=== PATIENT | male | born 1990 | race African-American/Black ===

== ENCOUNTER 2016-11-09 01:02 | Emergency (ER) | payer OTHER ==
[2016-11-09] MEDS ORDERED: NS 1,000 ML IV ONE (01:21)
--- NOTE | 2016-11-09 01:25 | EDPHY ---
H & P Stated Complaint: r upper abd pain 3 hr Time Seen by Provider: 11/09/16 01:15 HPI/ROS: Chief Complaint: Abdominal pain HPI: 26-year-old male had onset of right upper quadrant abdominal pain 3 hours ago. Is described as a tightness, 8/10. There are no aggravating or relieving factors. There is some radiating to his upper back. Does not hurt to move around. No urinary urgency, frequency or hematuria. No history of the same. Some nausea no vomiting. No fevers or chills. No recent illness. Does not have a history of prior abdominal surgeries in the past. ROS: 10 point Review of Systems is negative except as noted in the HPI. PMH: None Medications: None Allergies: No known drug allergies Social History: No smoking, occasional alcohol, no recreational drug use Family History: non-contributory Physical Exam: Gen: Awake, Alert, No Distress HEENT: Nose: no rhinorrhea Eyes: PERRLA, EOMI Mouth: Moist mucosa Neck: Supple, no JVD Chest: nontender, lungs clear to auscultation Heart: S1, S2 normal, no murmur Abd: Soft, right upper quadrant tenderness to palpation with a positive Chavez sign, no guarding Back: no CVA tenderness, no midline tenderness Ext: no edema, non-tender Skin: no rash Neuro: CN II-XII intact, Sensation grossly intact, Strength 5/5 in bilateral upper and lower extremities - Personal History Current Tetanus/Diphtheria Vaccine: Yes Current Tetanus Diphtheria and Acellular Pertussis (TDAP): Yes - Medical/Surgical History Hx Asthma: No Hx Chronic Respiratory Disease: No Hx Diabetes: No Hx Cardiac Disease: No Hx Renal Disease: No Hx Cirrhosis: No Hx Alcoholism: No Hx HIV/AIDS: No Hx Splenectomy or Spleen Trauma: No - Social History Smoking Status: Never smoked Constitutional: Initial Vital Signs Temperature (C) 36.4 C 11/09/16 01:05 Heart Rate 58 L 11/09/16 01:05 Respiratory Rate 18 11/09/16 01:05 Blood Pressure 134/91 H 11/09/16 01:05 O2 Sat (%) 99 11/09/16 01:05 O2 Delivery Mode Room Air Allergies/Adverse Reactions: No Known Allergies Allergy (Unverified 11/09/16 01:05) Home Medications: Medication Instructions Recorded NK [No Known Home Meds] 11/09/16 Medical Decision Making - Diagnostics Imaging Results: Right upper quadrant ultrasound interpreted by Dr. Bonds. There is a 2.5 cm stone lodged in the neck of the gallbladder. There is some small gallbladder wall thickening with there is no pericholecystic fluid. The common bile duct is normal. There is an incidental right renal cyst. Imaging: Discussed imaging studies w/ call center associate Radiologist ED Course/Re-evaluation: Patient is a 2.5 cm stone lodged in the neck of the gallbladder. I have discussed with Dr. Ellington, general surgery. He states that given the short duration of the patient's been symptomatic that if we can get his pain under control he does not need to have an urgent cholecystectomy done and this can be performed as outpatient. He is requesting that I give the patient IV Toradol. If the patient's pain improved he can be discharged without further follow-up. If the patient's pain does not improve significantly I will rediscuss the case with him. 0430 Pt feeling better. Will d/c with OP fu with Gen surgery. - Data Points Laboratory Results: Laboratory Results 11/09/16 01:25 11/09/16 01:25 11/09/16 11/09/16 01:25 01:25 WBC 5.97 10^3/uL 10^3/uL (3.80-9.50) RBC 5.25 10^6/uL 10^6/uL (4.40-6.38) Hgb 15.0 g/dL g/dL (13.7-17.5) Hct 45.9 % % (40.0-51.0) MCV 87.4 fL fL (81.5-99.8) MCH 28.6 pg pg (27.9-34.1) MCHC 32.7 g/dL g/dL (32.4-36.7) RDW 13.0 % % (11.5-15.2) Plt Count 233 10^3/uL 10^3/uL (150-400) MPV 9.4 fL fL (8.7-11.7) Neut % (Auto) 29.8 % L % (39.3-74.2) Lymph % (Auto) 59.3 % H % (15.0-45.0) Luna % (Auto) 7.5 % % (4.5-13.0) Eos % (Auto) 2.8 % % (0.6-7.6) Baso % (Auto) 0.3 % % (0.3-1.7) Nucleat RBC Rel Count 0.0 % % (0.0-0.2) Absolute Neuts (auto) 1.77 10^3/uL 10^3/uL (1.70-6.50) Absolute Lymphs (auto) 3.54 10^3/uL H 10^3/uL (1.00-3.00) Absolute Monos (auto) 0.45 10^3/uL 10^3/uL (0.30-0.80) Absolute Eos (auto) 0.17 10^3/uL 10^3/uL (0.03-0.40) Absolute Basos (auto) 0.02 10^3/uL 10^3/uL (0.02-0.10) Absolute Nucleated RBC 0.00 10^3/uL 10^3/uL (0-0.01) Immature Gran % 0.3 % % (0.0-1.1) Immature Gran # 0.02 10^3/uL 10^3/uL (0.00-0.10) Sodium 140 mEq/L mEq/L (134-144) Potassium 4.4 mEq/L mEq/L (3.5-5.2) Chloride 101 mEq/L mEq/L (97-110) Carbon Dioxide 28 mEq/l mEq/l (22-31) Anion Gap 11 mEq/L mEq/L (8-16) BUN 20 mg/dL mg/dL (7-23) Creatinine 1.0 mg/dL mg/dL (0.7-1.3) Estimated GFR > 60 Glucose 109 mg/dL H mg/dL (70-100) Calcium 9.7 mg/dL mg/dL (8.5-10.4) Total Bilirubin 0.6 mg/dL mg/dL (0.1-1.4) Conjugated Bilirubin 0.4 mg/dL mg/dL (0.0-0.5) Unconjugated Bilirubin 0.2 mg/dL mg/dL (0.0-1.1) AST 34 IU/L IU/L (17-59) ALT 60 IU/L IU/L (21-72) Alkaline Phosphatase 76 IU/L IU/L (38-126) Total Protein 7.7 g/dL g/dL (6.3-8.2) Albumin 4.7 g/dL g/dL (3.5-5.0) Lipase 86.0 IU/L IU/L (23-300) Medications Given: Discontinued Medications Sodium Chloride (Ns) 1,000 mls @ 0 mls/hr IV ONCE ONE PRN Reason: Wide Open Stop: 11/09/16 01:22 Last Admin: 11/09/16 01:34 Dose: 1,000 mls Ketorolac Tromethamine (Toradol) 30 mg IVP EDNOW ONE Stop: 11/09/16 03:34 Last Admin: 11/09/16 03:38 Dose: 30 mg Morphine Sulfate (Morphine) 4 mg IVP ONCE ONE Stop: 11/09/16 01:22 Last Admin: 11/09/16 01:57 Dose: 4 mg Departure - Departure Disposition: Home, Routine, Self-Care Clinical Impression: Cholelithiasis Condition: Good Instructions: Gallstones (ED), Biliary Colic (ED) Additional Instructions: Follow up with Dr. Ellington, general surgery in 3-4 days for re-evaluation. If pain returns and does not improve return to the emergency department. Referrals: NONE *PRIMARY CARE P,. [Primary Care Provider] - As per Instructions Kevon Ellington MD [Medical Doctor] - As per Instructions
[2016-11-09 01:31] LABS: % IMMATURE GRANULYOCYTES 0.3 % (0.0-1.1); ABSOLUTE IMMATURE GRANULOCYTES 0.02 10^3/uL (0.00-0.10); ADD DIFF? NO; ADD MORPH? NO; ADD SCAN? NO; ATYPICAL LYMPHOCYTE FLAG 30 (0-99); FRAGMENT RBC FLAG 0 (0-99); HEMATOCRIT 45.9 % (40.0-51.0); LEFT SHIFT FLG 0 (0-99); LIPEMIA HEMOLYSIS FLAG 80 (0-99); MEAN CELL HEMOGLOBIN 28.6 pg (27.9-34.1); MEAN CELL HEMOGLOBIN CONCENTR. 32.7 g/dL (32.4-36.7); MEAN CELL VOLUME 87.4 fL (81.5-99.8); MEAN PLATELET VOLUME 9.4 fL (8.7-11.7); PLATELET CLUMPS FLAG 0 (0-99); PLATELET COUNT 233 10^3/uL (150-400); RED BLOOD CELL COUNT 5.25 10^6/uL (4.40-6.38)
[2016-11-09 02:14] LABS: ALANINE AMINOTRANSFERASE 60 IU/L (21-72); ALBUMIN 4.7 g/dL (3.5-5.0); ALKALINE PHOSPHATASE 76 IU/L (38-126); ANION GAP 11 mEq/L (8-16); ASPARTATE AMINOTRANSFERASE 34 IU/L (17-59); BILIRUBIN,TOTAL 0.6 mg/dL (0.1-1.4); BILIRUBIN-CONJUGATED 0.4 mg/dL (0.0-0.5); BILIRUBIN-UNCONJUGATED 0.2 mg/dL (0.0-1.1); CALCIUM 9.7 mg/dL (8.5-10.4); CARBON DIOXIDE 28 mEq/l (22-31); CHLORIDE 101 mEq/L (97-110); GLOMERULAR FILTRATION RATE > 60; GLUCOSE 109 mg/dL (70-100); POTASSIUM 4.4 mEq/L (3.5-5.2); SODIUM 140 mEq/L (134-144); TOTAL PROTEIN 7.7 g/dL (6.3-8.2)
[2016-11-09 03:30] VITALS: RESP 16; O2SAT 97
[2016-11-09] MEDS ORDERED: KETOROLAC 30 MG/1 ML SDV IVP ONE (03:33)
[2016-11-09 04:44] VITALS: BP 125/67; PULSE 66; TEMP 97.9
== END 2016-11-09 04:44 | disposition home or self-care (01) ==
DX: K80.20 Calculus of gallbladder without cholecystitis without obstruction (principal)
CPT/HCPCS: 96374; J1885